=== PATIENT | male | born 1950 | race Caucasian/White ===

== ENCOUNTER → 2023-10-09 07:23 | Outpatient (REF) | payer MEDICARE, OTHER, SELFPAY | LOC: RCS 07:23 | PROVIDERS: ATTENDING PHYSICIAN Internal Medicine Cardiovascular Disease; FAMILY PHYSICIAN Thoracic Surgery (Cardiothoracic Vascular Surgery) | DX: I35.0 Nonrheumatic aortic (valve) stenosis (principal) | CPT/HCPCS: 93306 ==

== ENCOUNTER 2024-07-15 06:17 | Day surgery (SDC) | payer MEDICARE, OTHER, SELFPAY | END 2024-07-15 11:42 | disposition home or self-care (01) | LOC: GI 06:17 | PROVIDERS: ATTENDING PHYSICIAN Internal Medicine Gastroenterology | DX: Z12.11 Encounter for screening for malignant neoplasm of colon (principal); K57.30 Diverticulosis of large intestine without perforation or abscess without bleeding; K64.0 First degree hemorrhoids; Z86.0100 Personal history of colon polyps, unspecified; Z83.719 Family history of colon polyps, unspecified | CPT/HCPCS: G0105 ==

== ENCOUNTER → 2024-11-26 14:02 | Outpatient (REF) | payer MEDICARE, OTHER, SELFPAY | LOC: MRI 3T 14:02 | PROVIDERS: ATTENDING PHYSICIAN Orthopaedic Surgery Hand Surgery; FAMILY PHYSICIAN Family Medicine | DX: M25.561 Pain in right knee (principal) | CPT/HCPCS: 73721; 76014; 76015 ==

== ENCOUNTER → 2025-03-03 09:25 | Outpatient (REF) | payer MEDICARE, OTHER, SELFPAY ==
[2025-03-03 10:46] LABS: Blood Urea Nitrogen 16 mg/dl (9-20); Calcium 9.2 mg/dl (8.4-10.2); Carbon Dioxide 27 mmol/L (22-30); Chloride 103 mmol/L (98-107); Glucose 102 mg/dl (70-99); Potassium 4.7 mmol/L (3.5-5.1); Sodium 133 mmol/L (135-145); eGFR > 60.00
== END ==
LOC: REG 09:25
PROVIDERS: ATTENDING PHYSICIAN Student in an Organized Health Care Education/Training Program; FAMILY PHYSICIAN Family Medicine
DX: Z85.46 Personal history of malignant neoplasm of prostate (principal); Z90.79 Acquired absence of other genital organ(s); I50.32 Chronic diastolic (congestive) heart failure; Z95.828 Presence of other vascular implants and grafts; Z95.2 Presence of prosthetic heart valve; I25.10 Atherosclerotic heart disease of native coronary artery without angina pectoris
CPT/HCPCS: 36415; 80048

== ENCOUNTER 2025-03-05 05:59 | Inpatient (IN) | payer MEDICARE, OTHER, SELFPAY ==
--- NOTE | 2025-02-04 15:05 | CM ---
Addendum entered by Catrachita Garcia RN 02/05/25 10:23:
Demographics: confirmed
Living situation: Lives with independently.
Support Person Post Operatively: , friends
History of
VN: None
SNF: None
Outpatient: Encouraged patient to call to make outpatient PT appointment at [facility]
Has patient purchased required equipment: cane, cold therapy, provided patient with number for [employer] and [employer] extension
PCP: Sky Bustamante
Pharmacy: [facility]
Post Operative Discharge Plan: HOme with and friends, plans to make outpatient PT appointment.
Original Note:
CM reviewed medical records. CM left message for orthopedic [place]. CM will await return call.
[2025-02-11 11:39] LABS: Hematocrit 42.7 % (39.0-52.0); Hemoglobin 14.0 g/dL (13.0-18.0); Mean Corp Hgb Conc. 32.8 g/dL (33.0-37.0); Mean Corpuscular Volume 90.7 fL (80.0-94.0); Platelet Count 215 10^3/uL (130-400); Red Cell Dist. Width 12.5 % (11.5-14.5)
[2025-02-11 12:06] LABS: ALT (SGPT) 20 U/L (0-50); AST (SGOT) 26 U/L (17-59); Albumin 4.0 g/dl (3.5-5.0); Alkaline Phosphatase 80 U/L (38-126); Blood Urea Nitrogen 19 mg/dl (9-20); Calcium 9.4 mg/dl (8.4-10.2); Carbon Dioxide 27 mmol/L (22-30); Chloride 102 mmol/L (98-107); Glucose 95 mg/dl (70-99); Potassium 5.4 mmol/L (3.5-5.1); Sodium 132 mmol/L (135-145); Total Protein 6.5 g/dl (6.3-8.2); eGFR > 60.00
[2025-02-11 13:22] LABS: Glycohemoglobin (HgbA1c) 5.7 % (4.0-5.6)
[2025-02-11 14:17] VITALS: BMI 34.9
[2025-02-11 16:05] VITALS: BMI 34.9
[2025-03-05] VITALS (19 sets, daily range): BP systolic 132–170; BP diastolic 64–100; PULSE 64; BMI 34.9; BMI 35.0
[2025-03-05] MEDS: CELEBREX 200 MG PO (06:30)
[2025-03-05] MEDS: BACTROBAN NASAL 1 GRAM NASAL (06:49)
[2025-03-05] MEDS: NORMOSOL-R/PLASMALYTE-A 1000 IV (06:50)
--- NOTE | 2025-03-05 07:41 | W.PN.UPDATE ---
Update Note
Progress Note Update
R knee OA s/p R TKA w/ Dr Reyes 03/05/25
- EARLY DISCHARGE
DVT prophylaxis - ASA, b/l venous foot pumps
HTN - + parameters - monitor BP
PAF, no OAC
Sick sinus syndrome/complete heart block s/p Medtronic PPM 2022
Severe s/p AVR (bioprosthetic) and CAD s/p CABG x1 SVG RPDA 09/2022
- Monitor on tele
- Continue BB
HFpEF - reduce hourly IVF rate to prevent fluid overload
- Low sodium diet
- Monitor daily weights, I&Os
GERD, GIB on Warfarin 2022 - add Pepcid HS for GI ppx
- Encourage food w/ short term Celebrex use
HLD
Diverticulosis
Fatty liver disease
Adenocarcinoma of the prostate s/p robotic prostatectomy 2016
[2025-03-05] MEDS: ROXICODONE 5 MG PO (11:27)
[2025-03-05] MEDS: NSS 1000 IV (12:48)
--- NOTE | 2025-03-05 13:10 | PTCARENOTE ---
Pt received from the PACU via stretcher. Transport was w/o incident. Pt is AAOx3, HRR, lungs are clear, resp. easy. Pulse ox 97% on 2L via nc. Pt's right knee with Mepilex dressing C/D/I, no drainage noted at this time. Pt reports full sensation in
right leg from foot up to thigh. Pt able to wiggle toes, point and flex w/o difficulty on right. VSS, Pt is afebrile. Pt denies nausea and reports pain at 5/10 on pain scale. Will medicate for pain as ordered. Pt instructed on plan of care, Pt
verbalized understanding of instructions. Call ortiz is within reach.
[2025-03-05] MEDS: TYLENOL 650 MG PO ×4 (13:21→23:13)
[2025-03-05] MEDS: ROXICODONE 10 MG PO (14:36)
[2025-03-05] MEDS: ANCEF 5 IV ×2 (14:37→22:38)
[2025-03-05] MEDS: ASPIRIN 325 MG PO (17:01)
--- NOTE | 2025-03-05 18:05 | OR.RPT ---
Operative Report
Operative Report
Orthopaedic Surgery Operative Note
DATE OF OPERATION: 03/05/2025
PREOPERATIVE DIAGNOSES: Osteoarthritis, right knee.
POSTOPERATIVE DIAGNOSES: Osteoarthritis, right knee.
OPERATION PERFORMED:
1) Right total knee arthroplasty (CPT 05094)
2) Intraosseous administration of analgesic (CPT 85182)
SURGEON: Toi Reyes MD
ASSISTANTS: Bienvenido Mccarthy PA-C who helped with patient and limb positioning and retraction
ANESTHESIA: General by anesthesia plus intraoperative infusion of morphine into the tibial metaphysis by Dr. Reyes
COMPLICATIONS: None.
ESTIMATED BLOOD LOSS: 20mL
DRAINS: None
TOURNIQUET TIME: 42 minutes.
IMPLANTS:
- Valdo Persona CR Femur, size 10
- Valdo Persona tibia base plate, size F
- Valdo Persona ultracongruent articular surface, 14 mm
- DJO [place] bone cement
INDICATIONS: The patient presented to my office with debilitating right knee pain due to osteoarthritis. We reviewed the natural history of this problem, as well as the risks, benefits, and alternatives of various treatment options. The patient
exhausted all nonoperative treatment options and wished to proceed with knee replacement surgery. The patient understood the risks which included, but were not limited to, bleeding, infection, failure to relieve pain, more pain than preop, damage to
blood vessels and nerves, need for reoperation, mechanical failure of the implants, wound healing problems, stiffness, instability, blood clot, pulmonary embolism, myocardial infarction, pneumonia, arrhythmia, CVA, and . The patient accepted
these risks and wished to proceed. All questions were answered, and informed consent was obtained.
PROCEDURE IN DETAIL: The patient was identified in the preoperative holding area. The right knee was identified as the operative site. The patient was taken in the operating room and placed in a supine position on the operating table. General
anesthesia was performed after attempted spinal. IV antibiotics and tranexamic acid were administered. An SCD was placed on the left lower extremity. A well-padded tourniquet was placed on the proximal thigh. All bony prominences were well padded.
The right lower extremity was prepped and draped in the usual sterile fashion.
We performed a surgical time-out. An interarticular block was performed with local anesthetic with epinephrine. The limb was exsanguinated with an Esmarch bandage, then the tourniquet was inflated to 250 mmHg. I performed interosseous administration
of morphine-saline solution via a Jamshidi style intraosseous needle into the proximal medial tibial metaphysis as described by Surinder Jones MD. This was performed to aid in pain control. A midline skin incision was made followed by a medial
parapatellar arthrotomy. A subperiosteal peel was performed on the medial tibia. I excised part of the infrapatellar fat pad to improve our visualization as well as tissue over anterior femur. The patella was everted and the knee was flexed. I
excised the remnants of the anterior and posterior cruciate ligaments as well as tibial and femoral osteophytes with rongeurs.
The knee was flexed, and the extramedullary tibial cutting guide was aligned. [place] was aligned at neutral, rotation was centered on the tibial tubercle, and coronal alignment was aligned with the mechanical axis of the tibia and center of the ankle
joint. The cut height was 10mm off the lateral tibia joint surface. The guide was secured into place. The MCL and LCL were protected. The tibia surface was cut. The cut surface was inspected after removal to ensure appropriate height and slope based
on the preoperative plan. The cut was checked with a drop romelia. It was centered nicely at the ankle.
A drill was used to open the femoral canal. The intramedullary distal femoral cutting guide was inserted into the femur. This was set at 5 degrees +0. This was secured into place with three pins. The cut level was checked with an moose wing. The
distal femur was cut through the cutting guide. The IM guide was reinserted to double check that the level of resection was flush and in appropriate alignment.
[place]�s line and the transepicondylar axis were marked on the femur. The femoral sizing guide was applied to the anterior femur. Pins were inserted, and the 4-in-1 cutting guide was applied and secured into place. The rotation was compared to
[place]�s line, the transepicondylar axis, and the neutral tibia cut and was found to be appropriate. The width was checked and found to be appropriate and lateralized on the femur. The anterior, posterior, and chamfur cuts were made. A lamina
adon was used to open the flexion gap, and posterior osteophytes were removed with a curved osteotome. The remnant medial and lateral meniscus were also removed. I prophylactically cauterized the lateral geniculate arteries. A 10mm spacer block
was applied to the flexion gap and was noted to be balanced medially and laterally. The knee was extended, and the block showed symmetric to extension and flexion gaps.
The tibia was exposed and sized. Rotation was set in line with the tibial tubercle and congruent with the femur. The trial was secured into place with two pins. The trial femur was impacted into place, and a trial articular surface was placed. The
knee was taken through range of motion and noted to be stable throughout the arc of motion without gaping or excess tension. The patella tracked centrally throughout the arc of motion without need for further releases. No full thickness cartilage
defects.
The trials were removed. The tibia keel was prepared with the punch and the drill. The bone surfaces were irrigated with sterile saline and dried. The cement was mixed in a vacuum mixer. Cement gun was used to apply cement to the tibial surface and
the undersurface of the tibial implant. Cement was pressurized into the tibial canal and tibia surface. The tibial component was impacted into place. Excess cement was removed. Cement was applied to the femoral surface and the femoral component. The
femoral component was impacted into place, and excess cement removed. A trial articular surface was inserted, and the knee was extended while the cement polymerized. The tourniquet was let down, and meticulous hemostasis was achieved. Dilute
betadine was poured into the wound and allowed to soak for 3 minutes. The knee was irrigated with copious normal saline.
Once the cement was polymerized, the trial articular surface was removed. Any excess cement was removed. The knee was trialed, and the final articular surface was selected and inserted into the tibial locking mechanism. The knee was reduced. A fresh
drape was applied to the surgical field.
The arthrotomy was closed with 0-PDS. Once closed, an interarticular block was performed with local anesthetic with epi. The deep dermal layer was closed with 2-0 PDS, and the subcuticular skin was closed with 3-0 monocryl. A Dermabond Prineo
dressing was applied to the skin in full flexion. Once this was completely dry, a sterile waterproof dressing was applied.
The anesthesia team performed an adductor canal block in the OR. The patient awoke from anesthesia without any difficulties. The sponge and instrument counts were correct x2 at the end of the case.
Estiven Reyes MD
[2025-03-05] MEDS: ZOFRAN 4 MG IV (18:38)
[2025-03-05] MEDS: BACTROBAN 2% OINTMENT 1 APPLIC NASAL (19:48)
[2025-03-05] MEDS: DECADRON 4 MG PO (19:48)
[2025-03-05] MEDS: SENOKOT 17.2 MG PO (19:48)
[2025-03-05] MEDS: COLACE 100 MG PO (19:48)
[2025-03-05] MEDS: TOPROL XL 100 MG PO (22:37)
[2025-03-05] MEDS: CRESTOR 40 MG PO (22:38)
[2025-03-05] MEDS: PEPCID 20 MG PO (22:38)
[2025-03-05] MEDS: NEURONTIN 300 MG PO (22:38)
[2025-03-06 03:18] VITALS: BP 147/77
[2025-03-06] MEDS: TYLENOL 650 MG PO ×2 (03:58→07:56)
[2025-03-06] MEDS: ROXICODONE 5 MG PO (05:56)
[2025-03-06 06:00] VITALS: BMI 35.0
[2025-03-06 07:00] VITALS: BMI 35.0
[2025-03-06] MEDS: ASPIRIN 325 MG PO (07:56)
[2025-03-06] MEDS: DECADRON 4 MG PO (07:57)
[2025-03-06] MEDS: COLACE 100 MG PO (07:57)
[2025-03-06] MEDS: CELEBREX 200 MG PO (07:57)
[2025-03-06] MEDS: SENOKOT 17.2 MG PO (07:57)
[2025-03-06] MEDS: BACTROBAN 2% OINTMENT 1 APPLIC NASAL (07:58)
[2025-03-06 08:00] VITALS: BP 152/84
[2025-03-06 08:06] VITALS: BMI 35.0
[2025-03-06 09:05] VITALS: BP 152/78; BP 169/84; PULSE 63; O2SAT 97
[2025-03-06 09:35] VITALS: BP 169/84; PULSE 63; O2SAT 97
--- NOTE | 2025-03-06 09:39 | CM ---
Cm reviewed medical records. Cm confirmed outpatient appointment. Patient given information on Handicap Placard.
PLAN: Home with outpatient PT.
--- NOTE | 2025-03-06 09:49 | W.PN.ORTHO ---
Today's Communication / Plan
-
D/c today since clinically stable, did well w/ PT and OT.
Assessment
.
Distal Motor Intact: Yes
Dressing:
Clean, dry and intact.
Assessment:
R knee OA s/p R TKA w/ Dr Reyes 03/05/25
- EARLY DISCHARGE
DVT prophylaxis - ASA, b/l venous foot pumps
HTN - + parameters - BPs overall stable
PAF, no OAC
Sick sinus syndrome/complete heart block s/p Medtronic PPM 2022
Severe s/p AVR (bioprosthetic) and CAD s/p CABG x1 SVG RPDA 09/2022
- Rhythm stable on tele
- Continue BB
HFpEF - reduced hourly IVF rate to prevent fluid overload
- Low sodium diet
- Daily weight, I&Os stable
GERD, GIB on Warfarin 2022 - added Pepcid HS for GI ppx
- Encourage food w/ short term Celebrex use
HLD
Diverticulosis
Fatty liver disease
Adenocarcinoma of the prostate s/p robotic prostatectomy 2016
Plan
.
Surgery / Date: R TKA w/ Dr Reyes 03/05/25
DVT Prophylaxis: Aspirin
Activity:
Out of bed.
PT/OT
Discharge Plan: Home w/ Outpatient PT
Subjective
.
.:
Patient resting comfortably in his chair.
R knee pain overall tolerable w/ current pain meds.
Denies any new significant complaints.
Eager for potential early d/c today.
Vital Signs and Labs
.
Vital Signs and Labs:
Lab Results
02/11/25 10:46
02/11/25 10:46
Temp Pulse Resp BP Pulse Ox
98.2 F 63 16 152/84 96
03/06/25 08:00 03/06/25 08:00 03/06/25 08:00 03/06/25 08:00 03/06/25 08:00
Non-invasive Hgb result: 11.8
Physical Exam
-
HEENT: No pallor, cyanosis, or jaundice. Throat clear.
NECK: Supple. No JVD.
RESPIRATORY: Lungs clear to auscultation.
CVS: S1, S2 normal. RRR.�+ PPM.
ABDOMEN: Soft, non-tender. No distension. Obese.
EXTREMITIES: Strength equal, no calf pain with palpation/dorsiflexion. Calves soft.
PROVIDER CONTRACTING CONSULTANT: AOx3. No focal deficits. zoo director grossly intact
--- NOTE | 2025-03-06 09:59 | W.DS.TRANS ---
DC Summary - Supervisor Laundry
-
Discharge Instructions:
Sleep Apnea Risk High
Discharge Diagnosis/Procedures R knee OA s/p R TKA w/ Dr Reyes 03/05/25
Diet Low Sodium
Additional Diets Adequate hydration, minimize opioids, and wear
TEDs stockings to prevent low blood pressure/
dizziness
Activity With Walker,As tolerated
Driving Restrictions Not until seen by your Dr
Bathing Restrictions OK to Shower
Other Services PT
Wound Care Leave dressing on until seen by surgeon's office
for follow-up in 2 weeks
Specialty Instructions Weigh Daily
Instructions:
Stand-Alone Forms: Total Hip/Knee Replacement D/C
Changes to Home Medications: Yes
Discharge Medications:
DC Medications w/original date entered in [employer]
metoprolol succinate 50 mg tablet,extended release 24 hr 100 mg PO HS Blood Pressure 11/23/22
Cbd Gummy 1 dose PO HS Supplement 02/10/25
Cbd Oil 1 dose sublingual HS Supplement 02/10/25
rosuvastatin 40 mg tablet 40 mg PO HS High Cholesterol 02/10/25
celecoxib 200 mg capsule 200 mg PO DAILY Anti-inflammatory #14 caps 02/11/25
dexamethasone 4 mg tablet 4 mg PO BID inflammation #6 tabs 02/11/25
famotidine 20 mg tablet 20 mg PO HS GI prophylaxis #30 tabs 02/11/25
gabapentin 300 mg capsule 300 mg PO HS sleep/pain #10 caps 02/11/25
ondansetron 4 mg disintegrating tablet 4 mg PO Q6H PRN n/v #20 tabs 02/11/25
oxycodone 5 mg tablet 5 mg PO Q6H PRN 1 tab moderate pain, 2 tabs severe pain #30 tabs 02/11/25
acetaminophen 500 mg tablet (Tylenol Extra Strength) 1,000 mg (2 x 500 mg) PO Q6H #60 tabs 03/06/25
aspirin 325 mg tablet 325 mg PO DAILY #30 tabs 03/06/25
docusate sodium 100 mg capsule 100 mg PO BID #30 caps 03/06/25
magnesium hydroxide 400 mg/5 mL oral suspension (Milk of Magnesia) 30 ml PO HS PRN Constipation #355 mL 03/06/25
sennosides 8.6 mg tablet (Vera-airam) 17.2 mg (2 x 8.6 mg) PO BID #30 tabs 03/06/25
Home Medication Changes
celecoxib 200 mg capsule 200 mg PO DAILY Anti-inflammatory #14 caps 02/11/25
dexamethasone 4 mg tablet 4 mg PO BID inflammation #6 tabs 02/11/25
famotidine 20 mg tablet 20 mg PO HS GI prophylaxis #30 tabs 02/11/25
gabapentin 300 mg capsule 300 mg PO HS sleep/pain #10 caps 02/11/25
ondansetron 4 mg disintegrating tablet 4 mg PO Q6H PRN n/v #20 tabs 02/11/25
oxycodone 5 mg tablet 5 mg PO Q6H PRN 1 tab moderate pain, 2 tabs severe pain #30 tabs 02/11/25
acetaminophen 500 mg tablet (Tylenol Extra Strength) 1,000 mg (2 x 500 mg) PO Q6H #60 tabs 03/06/25
aspirin 325 mg tablet 325 mg PO DAILY #30 tabs 03/06/25
docusate sodium 100 mg capsule 100 mg PO BID #30 caps 03/06/25
magnesium hydroxide 400 mg/5 mL oral suspension (Milk of Magnesia) 30 ml PO HS PRN Constipation #355 mL 03/06/25
sennosides 8.6 mg tablet (Vera-airam) 17.2 mg (2 x 8.6 mg) PO BID #30 tabs 03/06/25
Pending Results: No
[2025-03-06 10:24] VITALS: BP 140/80
== END 2025-03-06 11:24 | disposition home or self-care (01) | DRG 470 ==
LOC: 2 SOUTH 05:59
PROVIDERS: ADMITTING PHYSICIAN Orthopaedic Surgery; FAMILY PHYSICIAN Family Medicine
PROC: 0SRC0J9 Replacement of Right Knee Joint with Synthetic Substitute, Cemented, Open Approach (ICD-10-PCS; 2025-03-05)
DX: M17.11 Unilateral primary osteoarthritis, right knee (principal); I44.2 Atrioventricular block, complete; I50.30 Unspecified diastolic (congestive) heart failure; I48.0 Paroxysmal atrial fibrillation; I49.5 Sick sinus syndrome; Z95.1 Presence of aortocoronary bypass graft; I25.10 Atherosclerotic heart disease of native coronary artery without angina pectoris; Z95.0 Presence of cardiac pacemaker; Z95.3 Presence of xenogenic heart valve; I11.0 Hypertensive heart disease with heart failure; K21.9 Gastro-esophageal reflux disease without esophagitis; E78.5 Hyperlipidemia, unspecified; Z90.79 Acquired absence of other genital organ(s)
CPT/HCPCS: 36415; 73560; 80048; 80053; 83036; 85027; 87070; 97110; 97116; 97162; 97166; 97535; C1713; C1776

== ENCOUNTER 2025-05-22 09:59 | Inpatient (IN) | payer MEDICARE, OTHER, SELFPAY ==
[2025-05-01 14:00] VITALS: BMI 34.4
[2025-05-01 14:34] LABS: Hematocrit 41.8 % (39.0-52.0); Hemoglobin 13.6 g/dL (13.0-18.0); Mean Corp Hgb Conc. 32.5 g/dL (33.0-37.0); Mean Corpuscular Volume 90.5 fL (80.0-94.0); Platelet Count 220 10^3/uL (130-400); Red Cell Dist. Width 13.5 % (11.5-14.5)
[2025-05-01 14:51] VITALS: BMI 34.4
[2025-05-01 15:38] LABS: ALT (SGPT) 16 U/L (0-50); AST (SGOT) 20 U/L (17-59); Albumin 4.3 g/dl (3.5-5.0); Alkaline Phosphatase 68 U/L (38-126); Blood Urea Nitrogen 18 mg/dl (9-20); Calcium 9.3 mg/dl (8.4-10.2); Carbon Dioxide 29 mmol/L (22-30); Chloride 97 mmol/L (98-107); Estimated Creatinine Clearance 85 ml/min; Glucose 139 mg/dl (70-99); Potassium 4.1 mmol/L (3.5-5.1); Sodium 133 mmol/L (135-145); Total Protein 6.7 g/dl (6.3-8.2); eGFR > 60.00
[2025-05-02 09:20] LABS: Glycohemoglobin (HgbA1c) 5.7 % (4.0-5.9)
--- NOTE | 2025-05-02 14:34 | CM ---
CM reviewed medical records. Patient and and known to this CM. CM left message for ortho PA.
[2025-05-22] VITALS (10 sets, daily range): BP systolic 120–160; BP diastolic 54–87; BMI 34.4
[2025-05-22] MEDS: TYLENOL 650 MG PO ×4 (10:26→23:35)
[2025-05-22] MEDS: CELEBREX 200 MG PO (10:26)
[2025-05-22] MEDS: NORMOSOL-R/PLASMALYTE-A 1000 IV ×2 (10:33→16:29)
--- NOTE | 2025-05-22 15:19 | W.PN.ORTHO ---
Today's Communication / Plan
-
d/c when stable
Assessment
.
Assessment:
*Coronary artery disease and ascending aortic aneurysm with
severe aortic stenosis, status post bioprosthetic aortic valve
replacement and CABG x1 SVG, RPDA 09/2022.
*PVCs, asymptomatic.
*Paroxysmal atrial fibrillation, pharmacological therapy with
Metoprolol Succinate and no current oral anticoagulation.
*Sick sinus syndrome/complete heart block, status post Medtronic
pacemaker implant 2022.
*HFpEF
-tele
-continue BB uninterrupted
*Hx GIB-PPI bid
Plan
.
Surgery / Date: L TYESHA Reyes 05/22/25
DVT Prophylaxis: Aspirin
Activity:
Out of bed.
PT/OT
Discharge Plan: Home w/ Outpatient PT
Vital Signs and Labs
.
Vital Signs and Labs:
Lab Results
05/01/25 12:53
05/01/25 12:53
Temp Pulse Resp BP Pulse Ox
98 F 75 17 129/61 95
05/22/25 14:53 05/22/25 15:00 05/22/25 15:00 05/22/25 15:00 05/22/25 15:00
--- NOTE | 2025-05-22 15:36 | W.DS.TRANS ---
DC Summary - Patient Day Coordinator
-
Discharge Instructions:
Sleep Apnea Risk Intermediate
Discharge Diagnosis/Procedures L knee OA s/p L TKA w/ Dr Reyes 05/22/25
Diet Regular
Additional Diets Adequate hydration, minimize opioids, and wear
TEDs stockings to prevent low blood pressure/
dizziness.
Activity As tolerated,With Walker
Driving Restrictions Not until seen by your Dr
Bathing Restrictions OK to Shower
Other Services PT
Wound Care Leave dressing on until seen by surgeon's office
for follow-up.
Specialty Instructions Weigh Daily
Instructions:
Stand-Alone Forms: Total Hip/Knee Replacement D/C
Changes to Home Medications: Yes
Discharge Medications:
DC Medications w/original date entered in [facility]
rosuvastatin 40 mg tablet 40 mg PO HS High Cholesterol 02/10/25
metoprolol succinate 100 mg tablet,extended release 24 hr 100 mg PO HS Blood Pressure 04/29/25
acetaminophen 500 mg tablet (Tylenol Extra Strength) 1,000 mg PO BID Pain 05/01/25
celecoxib 200 mg capsule (Celebrex) 200 mg PO DAILY #14 caps 05/01/25
dexamethasone 4 mg tablet 4 mg PO BID Anti-inflammatory #5 tabs 05/01/25
mupirocin 2 % topical ointment 1 applic intranasal BID #1 tube 05/01/25
oxycodone 5 mg tablet 5 - 10 mg (1 - 2 x 5 mg) PO Q6H PRN moderate-severe pain #30 tabs 05/01/25
aspirin 325 mg tablet 325 mg PO DAILY blood clot prevention #1 tab 05/22/25
docusate sodium 100 mg capsule (Colace) 100 mg PO BID stool softner #1 cap 05/22/25
famotidine 20 mg tablet 20 mg PO HS GI prophylaxis #30 tabs 05/22/25
gabapentin 300 mg capsule 300 mg PO HS sleep/pain #0 caps 05/22/25
losartan 50 mg tablet 50 mg PO HS Blood Pressure #0 tabs 05/22/25
magnesium hydroxide 400 mg/5 mL oral suspension (Milk of Magnesia) 30 ml PO HS PRN constipation #1 mL 05/22/25
ondansetron 4 mg disintegrating tablet 4 mg PO Q6H PRN n/v #20 tabs 05/22/25
sennosides 8.6 mg tablet (Senokot) 17.2 mg (2 x 8.6 mg) PO BID laxative #2 tabs 05/22/25
Home Medication Changes
celecoxib 200 mg capsule (Celebrex) 200 mg PO DAILY #14 caps 05/01/25
dexamethasone 4 mg tablet 4 mg PO BID Anti-inflammatory #5 tabs 05/01/25
mupirocin 2 % topical ointment 1 applic intranasal BID #1 tube 05/01/25
oxycodone 5 mg tablet 5 - 10 mg (1 - 2 x 5 mg) PO Q6H PRN moderate-severe pain #30 tabs 05/01/25
aspirin 325 mg tablet 325 mg PO DAILY blood clot prevention #1 tab 05/22/25
docusate sodium 100 mg capsule (Colace) 100 mg PO BID stool softner #1 cap 05/22/25
famotidine 20 mg tablet 20 mg PO HS GI prophylaxis #30 tabs 05/22/25
gabapentin 300 mg capsule 300 mg PO HS sleep/pain #0 caps 05/22/25
losartan 50 mg tablet 50 mg PO HS Blood Pressure #0 tabs 05/22/25
magnesium hydroxide 400 mg/5 mL oral suspension (Milk of Magnesia) 30 ml PO HS PRN constipation #1 mL 05/22/25
ondansetron 4 mg disintegrating tablet 4 mg PO Q6H PRN n/v #20 tabs 05/22/25
sennosides 8.6 mg tablet (Senokot) 17.2 mg (2 x 8.6 mg) PO BID laxative #2 tabs 05/22/25
Pending Results: No
--- NOTE | 2025-05-22 16:51 | OR.RPT ---
Operative Report
Operative Report
Orthopaedic Surgery Operative Note
DATE OF OPERATION: 05-22-2025
PREOPERATIVE DIAGNOSES: Osteoarthritis, left knee.
POSTOPERATIVE DIAGNOSES: Osteoarthritis, left knee.
OPERATION PERFORMED:
1) Left total knee arthroplasty (CPT 34063)
2) Intraosseous administration of analgesic (CPT 50608)
SURGEON: Toi Reyes MD
ASSISTANTS: Naresh MILLER who helped with patient and limb positioning and retraction
ANESTHESIA: General by anesthesia plus intraoperative infusion of morphine into the tibial metaphysis by Dr. Reyes
COMPLICATIONS: None.
ESTIMATED BLOOD LOSS: 20mL
DRAINS: None
TOURNIQUET TIME: 46 minutes.
IMPLANTS:
- Valdo Persona CR Femur, size 10
- Valdo Persona tibia base plate, size E
- Valdo Persona ultracongruent articular surface, 12 mm
- [employer] [place] bone cement
INDICATIONS: The patient presented to my office with debilitating left knee pain due to osteoarthritis. We reviewed the natural history of this problem, as well as the risks, benefits, and alternatives of various treatment options. The patient
exhausted all nonoperative treatment options and wished to proceed with knee replacement surgery. The patient understood the risks which included, but were not limited to, bleeding, infection, failure to relieve pain, more pain than preop, damage to
blood vessels and nerves, need for reoperation, mechanical failure of the implants, wound healing problems, stiffness, instability, blood clot, pulmonary embolism, myocardial infarction, pneumonia, arrhythmia, CVA, and . The patient accepted
these risks and wished to proceed. All questions were answered, and informed consent was obtained.
PROCEDURE IN DETAIL: The patient was identified in the preoperative holding area. The left knee was identified as the operative site. The patient was taken in the operating room and placed in a supine position on the operating table. General
anesthesia was performed. IV antibiotics and tranexamic acid were administered. An SCD was placed on the right lower extremity. A well-padded tourniquet was placed on the proximal thigh. All bony prominences were well padded. The left lower
extremity was prepped and draped in the usual sterile fashion.
We performed a surgical time-out. An interarticular block was performed with local anesthetic with epinephrine. The limb was exsanguinated with an Esmarch bandage, then the tourniquet was inflated to 250 mmHg. I performed interosseous administration
of morphine-saline solution via a Jamshidi style intraosseous needle into the proximal medial tibial metaphysis as described by Surinder Jones MD. This was performed to aid in pain control. A midline skin incision was made followed by a medial
parapatellar arthrotomy. A subperiosteal peel was performed on the medial tibia. I excised part of the infrapatellar fat pad to improve our visualization as well as tissue over anterior femur. The patella was everted and the knee was flexed. I
excised the remnants of the anterior and posterior cruciate ligaments as well as tibial and femoral osteophytes with rongeurs.
The knee was flexed, and the extramedullary tibial cutting guide was aligned. Dawes was aligned at neutral, rotation was centered on the tibial tubercle, and coronal alignment was aligned with the mechanical axis of the tibia and center of the ankle
joint. The cut height was 10mm off the lateral tibia joint surface. The guide was secured into place. The MCL and LCL were protected. The tibia surface was cut. The cut surface was inspected after removal to ensure appropriate height and slope based
on the preoperative plan. The cut was checked with a drop romelia. It was centered nicely at the ankle.
A drill was used to open the femoral canal. The intramedullary distal femoral cutting guide was inserted into the femur. This was set at 5 degrees +0. This was secured into place with three pins. The cut level was checked with an moose wing. The
distal femur was cut through the cutting guide. The IM guide was reinserted to double check that the level of resection was flush and in appropriate alignment.
[place]'s line and the transepicondylar axis were marked on the femur. The femoral sizing guide was applied to the anterior femur. Pins were inserted, and the 4-in-1 cutting guide was applied and secured into place. The rotation was compared to
[place]'s line, the transepicondylar axis, and the neutral tibia cut and was found to be appropriate. The width was checked and found to be appropriate and lateralized on the femur. The anterior, posterior, and chamfur cuts were made. A lamina
carbon paste mixer operator was used to open the flexion gap, and posterior osteophytes were removed with a curved osteotome. The remnant medial and lateral meniscus were also removed. I prophylactically cauterized the lateral geniculate arteries. A 10mm spacer block
was applied to the flexion gap and was noted to be balanced medially and laterally. The knee was extended, and the block showed symmetric to extension and flexion gaps.
The tibia was exposed and sized. Rotation was set in line with the tibial tubercle and congruent with the femur. The trial was secured into place with two pins. The trial femur was impacted into place, and a trial articular surface was placed. The
knee was taken through range of motion and noted to be stable throughout the arc of motion without gaping or excess tension. The patella centrally throughout the arc of motion without need for further releases. No signs of full thickness cartilage
wear.
The trials were removed. The tibia keel was prepared with the punch and the drill. The bone surfaces were irrigated with sterile saline and dried. The cement was mixed in a vacuum mixer. Cement gun was used to apply cement to the tibial surface and
the undersurface of the tibial implant. Cement was pressurized into the tibial canal and tibia surface. The tibial component was impacted into place. Excess cement was removed. Cement was applied to the femoral surface and the femoral component. The
femoral component was impacted into place, and excess cement removed. A trial articular surface was inserted, and the knee was extended while the cement polymerized. The tourniquet was let down, and meticulous hemostasis was achieved. Dilute
betadine was poured into the wound and allowed to soak for 3 minutes. The knee was irrigated with copious normal saline.
Once the cement was polymerized, the trial articular surface was removed. Any excess cement was removed. The knee was trialed, and the final articular surface was selected and inserted into the tibial locking mechanism. The knee was reduced. A fresh
drape was applied to the surgical field.
The arthrotomy was closed with 0-PDS. Once closed, an interarticular block was performed with local anesthetic with epi. The deep dermal layer was closed with 2-0 monofilament and the subcuticular skin was closed with 3-0 monofilament A skin glue
bandage was applied to the skin in full flexion. Once this was completely dry, a sterile waterproof dressing was applied.
The anesthesia team performed an adductor canal block in the OR. The patient awoke from anesthesia without any difficulties. The sponge and instrument counts were correct x2 at the end of the case.
Estiven Reyes MD
[2025-05-22] MEDS: ANCEF 5 IV (18:29)
[2025-05-22] MEDS: ASPIRIN 325 MG PO (18:30)
[2025-05-22] MEDS: SENOKOT 17.2 MG PO (20:34)
[2025-05-22] MEDS: PROTONIX 40 MG PO (20:34)
[2025-05-22] MEDS: COLACE 100 MG PO (20:35)
[2025-05-22] MEDS: BACTROBAN 2% OINTMENT 1 APPLIC NASAL (20:35)
[2025-05-22] MEDS: TORADOL 15 MG IV (20:35)
[2025-05-22] MEDS: DECADRON 4 MG IV (20:35)
[2025-05-22] MEDS: CRESTOR 40 MG PO (21:33)
[2025-05-22] MEDS: COZAAR 25 MG PO (21:33)
[2025-05-22] MEDS: TOPROL XL 100 MG PO (21:33)
[2025-05-22] MEDS: NEURONTIN 300 MG PO (21:33)
[2025-05-23] MEDS: ANCEF 5 IV (03:16)
[2025-05-23 03:17] VITALS: BP 135/72
[2025-05-23] MEDS: TYLENOL 650 MG PO ×2 (03:17→08:52)
[2025-05-23 05:38] VITALS: BMI 34.2
[2025-05-23] MEDS: ROXICODONE 5 MG PO (06:11)
[2025-05-23 08:00] VITALS: BP 137/74
--- NOTE | 2025-05-23 08:42 | CM ---
Demographics: confirmed
Living situation: Lives with spouse was independent with adl's and ambulation.
Support Person Post Operatively: spouse, friends
History of
VN: None
SNF: None
Outpatient: Encouraged patient has set up an appointment with [facility] for 05/26
Has patient purchased required equipment: cane, cold therapy, provided patient with number for [employer] and [employer]'s extension
PCP: Sky Bustamante
Pharmacy: [facility], [place]
Post Operative Discharge Plan: Home with spouse
brand marketing manager met with patient and spouse at bedside, patient was see by occupational therapy, physicla therapy to see patient soon, and plan is for discharge today, patient states he has set up outpatient physical therapy with [facility] for
Monday05/26/25.
[2025-05-23] MEDS: ASPIRIN 325 MG PO (08:48)
[2025-05-23] MEDS: BACTROBAN 2% OINTMENT 1 APPLIC NASAL (08:51)
[2025-05-23] MEDS: PROTONIX 40 MG PO (08:52)
[2025-05-23] MEDS: COLACE 100 MG PO (08:52)
[2025-05-23] MEDS: SENOKOT 17.2 MG PO (08:52)
[2025-05-23] MEDS: FLUSH (NSS) 2 FLUSH IV (08:53)
[2025-05-23] MEDS: TORADOL 15 MG IV (08:53)
[2025-05-23] MEDS: DECADRON 4 MG IV (08:54)
--- NOTE | 2025-05-23 11:00 | W.PN.ORTHO ---
Today's Communication / Plan
-
d/c
Assessment
.
Distal Motor Intact: Yes
Dressing:
Clean, dry and intact.
Assessment:
*Coronary artery disease and ascending aortic aneurysm with
severe aortic stenosis, status post bioprosthetic aortic valve
replacement and CABG x1 SVG, RPDA 09/2022.
*PVCs, asymptomatic.
*Paroxysmal atrial fibrillation, pharmacological therapy with
Metoprolol Succinate and no current oral anticoagulation.
*Sick sinus syndrome/complete heart block, status post [employer]tr[employer]
pacemaker implant 2022.
*HFpEF
-stable on tele
-volume satus good
-continue BB uninterrupted
Plan
.
Surgery / Date: L TYESHA Reyes 05/22/25
DVT Prophylaxis: Aspirin
Activity:
Out of bed.
PT/OT
Discharge Plan: Home w/ Outpatient PT
Subjective
.
.:
Patient resting comfortably.
Vital Signs and Labs
.
Vital Signs and Labs:
Lab Results
05/01/25 12:53
05/01/25 12:53
Temp Pulse Resp BP Pulse Ox
97.9 F 65 18 137/74 96
05/23/25 08:00 05/23/25 08:00 05/23/25 08:00 05/23/25 08:00 05/23/25 08:00
Non-invasive Hgb result: 11.4
Physical Exam
-
HEENT: No pallor, cyanosis, or jaundice. Throat clear.
NECK: Supple. No JVD.
RESPIRATORY: Lungs clear to auscultation.
CVS: S1, S2 normal. RRR.� No murmur, rub or gallop.
ABDOMEN: Soft, non-tender. No distension. BS+/normal.
EXTREMITIES: strength equal, no calf pain with palpation
INSTRUMENTATION AND CONTROL TECHNICIAN: AOx3. No focal deficits. internal investigator grossly intact
== END 2025-05-23 10:51 | disposition home or self-care (01) | DRG 470 ==
LOC: 2 SOUTH 09:59
PROVIDERS: ADMITTING PHYSICIAN Orthopaedic Surgery; FAMILY PHYSICIAN Family Medicine; REFERRING PHYSICIAN Internal Medicine Cardiovascular Disease
PROC: 0SRD0J9 Replacement of Left Knee Joint with Synthetic Substitute, Cemented, Open Approach (ICD-10-PCS; 2025-05-22)
DX: M17.12 Unilateral primary osteoarthritis, left knee (principal); I50.30 Unspecified diastolic (congestive) heart failure; I48.0 Paroxysmal atrial fibrillation; I11.0 Hypertensive heart disease with heart failure
CPT/HCPCS: 36415; 73560; 80053; 83036; 85027; 87070; 93005; 97110; 97116; 97162; 97166; 97535; C1713; C1776